=== PATIENT | female | born 1950 | race Caucasian/White ===

== ENCOUNTER 2017-03-21 18:27 | Emergency (ER) | payer MEDICARE, OTHER ==
[2017-03-21 18:35] VITALS: BP 121/74
== END 2017-03-21 19:49 | disposition left against medical advice (07) ==
LOC: ED 18:27
DX: M79.672 Pain in left foot (principal); Z53.21 Procedure and treatment not carried out due to patient leaving prior to being seen by health care provider

== ENCOUNTER 2019-03-31 06:55 | Emergency (ER) | payer MEDICARE, OTHER ==
--- NOTE | 2019-03-31 07:39 | ED ---
Throat Pain/Nasal Congestion - HPI Summary HPI Summary: Patient is a 68 y/o F presenting to ED with complaints of right eye pain, erythema, loss of vision, and photophobia. PMHx of shingles, herpes zoster of right eye, infection at right eye, "deep" corneal abrasion exactly a year ago, , per patient. 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 Patient is only visiting [place] for family matters and states that she is leaving tomorrow, 04/01/19, for [place]. Patient states that she is followed by a corneal surgeon, Dr. Ken Francis, , in [place] and that she is scheduled for a corneal transplant of right eye. Patient takes acyclovir, 800 mg in the morning prophylactically. Patient states that she has "good and bad days" with her vision. She states that yesterday, 03/30/19, her vision in her right eye became "cloudy" and "white out". This morning, 03/31/19 at 0500, patient reports that right eye pain onset. Pain is described as "severe , dagger pain". She reports that after the pain onset, her right eye started "running" this morning, stating that she had noted exudates on her lashes. Vision loss at right eye progressively worsened and patient cannot see out of her right eye. She also endorses experiencing erythema of right eye as well as photophobia. Patient claims that she experienced similar Sx during her shingles episode a year ago and is concerned for another infection. No injury of eye is reported. She has been cleaning out her parents' house recently but denies any FB entering her right eye. Patient does note that she wears contacts and states she is "unsure" if she had taken them out after having placed them last yesterday. Left eye is asymptomatic, patient describes it as "perfect". Patient states that the shingles was located only at her right eyeball. Hx of gluacoma is denied. PMHx of hypothyroidism for which the patient takes levothyroxine, 125 mcg. Patient denies taking any other medications daily and any other PMHx. No allergies are reported. PSHx of cosmetic surgery, face lift, eye lift. She notes that she has tattooing of her eyelids. FMHx of small cell lung cancer in sister. Patient never smoked tobacco, endorses occasional alcohol usage, and reports no substance usage. On triage, pain is rated 9/10, nothing is noted to aggravate or alleviate Sx. Home medications and allergies are reviewed. Patient' s nephew, Russell, is present in the room. - History of Current Complaint Chief Complaint: EDEyeProblem Hx Obtained From: Patient Onset/Duration: Lasting Hours - right eye pain, erythema and photophobia, Lasting Days - vision loss onset last night, Still Present Severity: Severe Associated Signs And Symptoms: Positive: Negative Cough: None Related History: Other (Noted In Comments) - shingles right eye one year ago, with dendritic corneal scarring - Allergies/Home Medications Allergies/Adverse Reactions: Allergies Allergy/AdvReac Type Severity Reaction Status Date / Time No Known Allergies Allergy Verified 03/31/19 07:12 Home Medications: Home Medications Acyclovir* [Zovirax 400 MG TAB*] 800 mg PO DAILY 03/31/19 [History Confirmed ] PMH/Surg Hx/FS Hx/Imm Hx Previously Healthy: No Endocrine/Hematology History: Reports: Hx Thyroid Disease - radioactive iodine 2007 hx hyperactive thyroid; hypothyroidism Denies: Hx Diabetes Cardiovascular History: Denies: Hx Hypertension Respiratory History: Denies: Hx Asthma, Hx Chronic Obstructive Pulmonary Disease (COPD) GI History: Denies: Hx Ulcer Sensory History: Denies: Hx Glaucoma Opthamlomology History: Reports: Hx Vision Problem - corneal scarring after Herpes zoster infection, with decreased vision - Surgical History Surgery Procedure, Year, and Place: Ovarian cyst removal several times. D&C two weeks ago. cosmetic surgery, face lift, eye lift Infectious Disease History: Yes Infectious Disease History: Reports: Hx Shingles Denies: Hx Hepatitis, Hx Human Immunodeficiency Virus (HIV), Traveled Outside the [place] in Last 30 Days - Family History Known Family History: Positive: Respiratory Disease - FMHx of small cell lung cancer in sister - Social History Alcohol Use: Occasionally Substance Use Type: Reports: None Smoking Status (MU): Never Smoked Tobacco Review of Systems Negative: Fever - ON VITALS, TEMP IS 97.2 Eyes: Other - POSITIVE - RIGHT EYE PAIN, LOSS OF VISION AT RIGHT EYE; NEGATIVE - RIGHT EYE INJURY, LEFT EYE ASX Positive: Photophobia, Drainage - RIGHT EYE, Erythema - RIGHT EYE Cardiovascular: Negative Respiratory: Negative Gastrointestinal: Negative Positive: no symptoms reported Musculoskeletal: Negative Skin: Negative Neurological: Negative Psychological: Normal All Other Systems Reviewed And Are Negative: Yes Physical Exam - Summary Physical Exam Summary: Appearance: Ill-appearing, moderate pain distress, well-nourished Skin: Warm, color reflects adequate perfusion, dry Head: Normal Head/Face inspection, atraumatic Eyes: Erythema of right conjunctiva, exudates are noted on right eyelashes. Right eyelid was everted, no FB or contact noted. Patient has tattoos of blue eyeliner on upper and lower eyelids and a dark area on upper lids of both eyes, these areas appear normal per patient, who was shown pictures of these areas taken in ED. EOMI. Left pupil is reactive to light, right pupil is not. ENT: Normal inspection Neck: Supple, no nodes, no JVD Respiratory: Lungs clear, normal breath sounds, no respiratory distress Cardio: RRR, No murmur, pulses normal, brisk capillary refill Abdomen: Soft, nontender Musculoskeletal: Strength Intact/ROM intact, no calf tenderness, no edema. Psychological: Normal Neuro: Alert, muscle tone normal, no focal deficit Triage Information Reviewed: Yes Vital Signs On Initial Exam: Initial Vitals Temp Pulse Resp BP Pulse Ox 97.2 F 72 16 136/92 97 03/31/19 07:07 03/31/19 07:07 03/31/19 07:07 03/31/19 07:07 03/31/19 07:07 Vital Signs Reviewed: Yes Procedures - Eye Procedure Right Alcaine Drops Administered: Yes Eye FB Removal: other - no FB or contact Eye Irrigated w/ Saline (ccs): 100 - fluorescein stain reveals dendritic pattern of scarring on right corneal. Unable to discern if new lesion or chronic scarring Diagnostics - Vital Signs Vital Signs Temp Pulse Resp BP Pulse Ox 03/31/19 07:07 97.2 F 72 16 136/92 97 - Laboratory Lab Statement: Any lab studies that have been ordered have been reviewed, and results considered in the medical decision making process. Re-Evaluation - Re-Evaluation First Eval Re-Evaluation Time: 08:22 Change: Unchanged Comment: First attempt to call, Dr. Ken Francis, , no response. Second Eval Re-Evaluation Time: 08:41 Change: Unchanged Comment: Second attempt to call, Dr. Ken Francis, , no response. Third Eval Re-Evaluation Time: 08:57 Change: Unchanged Comment: Visual acuity test done. Left eye 20/20, right eye 20/200 (patient states she cannot see out of her right eye). Consult with Dr. Lang was discussed, patient is agreeable with discharge from ED and will follow up with Dr. Lang at 1000. Fourth Eval Re-Evaluation Time: 10:41 Change: Unchanged Comment: Patient's case was discussed with Dr. Francis, he was advised that a culture was sent, he is agreeable with care that was given to patient. EENT Course/Dx - Course Course Of Treatment: Patient is a 68 y/o F presenting to ED with complaints of right eye pain, erythema, loss of vision, and photophobia. PMHx of shingles, herpes zoster of right eye, infection at right eye, "deep" corneal abrasion exactly a year ago, 03/31/18, per patient. 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 Patient is only visiting [place] for family matters and states that she is leaving tomorrow, 04/01/19, for [place]. Patient states that she is followed by a corneal surgeon, Dr. Ken Francis, , in [place] and that she is scheduled for a corneal transplant of right eye. Patient takes acyclovir, 800 mg in the morning prophylactically. Patient states that she has "good and bad days" with her vision. She states that yesterday, 03/30/19, her vision in her right eye became "cloudy" and "white out". This morning, 03/31/19 at 0500, patient reports that right eye pain onset. Pain is described as "severe, dagger pain". She reports that after the pain onset, her right eye started "running" this morning, stating that she had noted exudates on her lashes. Vision loss at right eye progressively worsened and patient cannot see out of her right eye. She also endorses experiencing erythema of right eye as well as photophobia. Patient claims that she experienced similar Sx during her shingles episode a year ago and is concerned for another infection. No injury of eye is reported. She has been cleaning out her parents' house recently but denies any FB entering her right eye. Patient does note that she wears contacts and states she is "unsure" if she had taken them out after having placed them last yesterday. Left eye is asymptomatic, patient describes it as "perfect". Patient states that the shingles was located only at her right eyeball. Hx of gluacoma is denied. On physical exam, erythema of right conjunctiva, exudates are noted on right eyelashes. Right eyelid was inverted, no FB noted. Patient has tattoos of blue eyeliner and a dark area on upper lids of both eyes, these areas appear normal per patient, who was shown pictures of these areas. EOMI. Left pupil is reactive to light, right pupil is not. Tetracaine, three drops and Ful-Samanta 1 mg OPHTHALMIC was given in ED. Fluorescein uptake in right eye is noted. There is right eye corneal scarring, unable to discern acute from chronic. Tonopen pressure of right eye was 11. Two attempts to contact patient's corneal surgeon, Dr. Ken Francis, were made, he did not cigar packer and picker. Visual acuity test done. Left eye 20/20 , right eye 20/200 (patient states she cannot see out of her right eye). Patient 's case was discussed with Dr. Lang, Dr. Lang states that the patient can be discharged from ED and follow up with him in his office today in an hour (1000, 03/31/19). This was discussed with the patient, who is agreeable with this plan. Patient's case was discussed with Dr. Francis later, he was advised that a culture was sent, he is agreeable with care that was given to patient. - Differential Diagnoses Differential Diagnoses: Corneal Abrasion, Foreign Body, Periorbital/Orbital Cellulitis - Diagnoses Provider Diagnoses: Corneal scarring, Redness of right eye, Pain, eye, right - Provider Notifications Discussed Care Of Patient With: Mamadou Lang Time Discussed With Above Provider: 08:53 Instructed by Provider To: Other - 0853 - Patient's case was discussed with Dr. Lang, Dr. Lang to evalute the patient today in his office. Patient will be discharged from ED so patient can be evaluated. 1041 - Patient's case was discussed with Dr. Francis. Discharge - Sign-Out/Discharge Documenting (check all that apply): Patient Departure - discharge Patient Received Moderate/Deep Sedation with Procedure: No - Discharge Plan Condition: Stable Disposition: HOME Patient Education Materials: Eye Pain (ED) Referrals: Mamadou Lang MD [Medical Doctor] - (Now) No Primary Care Phys,NOPCP [Primary Care Provider] - Additional Instructions: A culture was taken of the exudate in your right eye. Those results are pending at the time of discharge. We will contact you if you need further care based on these results. Dr. Lang, our general lot attendant will see you now at 10:00 in his office. Please go directly there. Return to the ER if you have any new or worsening symptoms. We did try to reach your corneal specialist in [place], Dr. Ken Francis at [phone]. We left messages at [phone] and [phone], but did not hear back from him yet. We will advise him to get in touch with you if he calls back after you have been discharged. - Billing Disposition and Condition Condition: STABLE Disposition: Home - Attestation Statements Document Initiated by Scribe: Yes Documenting Scribe: ELIU AKINS Provider For Whom Mamadouibe is Documenting (Include Credential): AARON CHIRINOS MD Scribe Attestation: ELIU Crockett, scribed for AARON CHIRINOS MD on 04/03/19 at 0153. Scribe Documentation Reviewed: Yes Provider Attestation: The documentation as recorded by the ELIU de la paz accurately reflects the service I personally performed and the decisions made by me, AARON CHIRINOS MD Status of Scribe Document: Viewed
[2019-03-31] MEDS ORDERED: Tetracaine 0.5% OPTH.SOL 15ML* BTL RIGHT EYE ONE (07:43)
[2019-03-31] MEDS ORDERED: Fluorescein Sodium TOPICAL* 1 MG TEST STRIP OPHTHALMIC ONE (07:44)
[2019-03-31] MEDS ORDERED: Tetracaine 0.5% OPTH.SOL 4 ML* 1 DROP BTL RIGHT EYE ONE ×2 (07:50→08:36)
[2019-03-31 09:26] VITALS: BP 144/79
--- NOTE | 2019-04-02 08:12 | PN ---
Progress Note - Progress Note Date of Service: 04/02/19 Note: Called patient had at 8:05AM to make aware of pseudomonas aeruginosa from eye culture which was obtained She was placed on antibiotic drops by our baggage porter, Dr. Lang She is currently in [place] and states the infection from her right eye has now moved over to her left eye I called the patient to encourage her to go to the emergency room to get further treatment or care or call her ophthalmic surgeon She states she will call her surgeon immediately and get further direction She will likely need oral abx as well, but again have encouraged her to go the ED to have further evaluation
== END 2019-03-31 09:26 | disposition home or self-care (01) ==
LOC: ED 06:55
DX: H17.9 Unspecified corneal scar and opacity (principal); H57.11 Ocular pain, right eye; H57.89 Other specified disorders of eye and adnexa; Z86.39 Personal history of other endocrine, nutritional and metabolic disease
CPT/HCPCS: 87070; 87077; 87186; 87205; 99282; A9270-GY